=== PATIENT | female | born 1955 | race Two or more races ===

== ENCOUNTER 2022-06-23 11:26 | Inpatient (IN) | payer OTHER ==
[~2022-06-23] VITALS: Ht 162.6 cm; Wt 59.4 kg
--- NOTE | 2022-06-23 11:30 | NUR ---
RECEIVED PT 66 YRS MALE [facility] HIGH BP SBP OVER 200MMHG PT SENT FROM MD OFFICE
--- NOTE | 2022-06-23 12:05 | NUR ---
SEEN BY DR. KUMAR
--- NOTE | 2022-06-23 13:00 | NUR ---
SUBMITTED MOVE SHEET
[2022-06-23 13:28] LABS: BASOPHILS # (AUTO) 0.2 K/uL (0.0-0.2); BASOPHILS % (AUTO) 4.2 % (0.0-2.0); EOSINOPHILS % (AUTO) 5.1 % (0.0-6.0); HEMATOCRIT 45 % (33-45); HEMOGLOBIN 14.3 g/dL (11.5-14.8); LYMPHOCYTES # (AUTO) 0.4 K/uL (0.8-4.8); LYMPHOCYTES % (AUTO) 10.5 % (20.0-44.0); MEAN CORPUSCULAR HGB CONC 32 g/dl (31.0-36.0); MEAN CORPUSCULAR VOLUME 89 fL (82-100); MONOCYTES # (AUTO) 0.2 K/uL (0.1-1.30); MONOCYTES % (AUTO) 5.8 % (2.0-12.0); NEUTROPHILS # (AUTO) 3.1 K/uL (1.8-8.9); NEUTROPHILS % (AUTO) 74.4 % (43.0-81.0); PLATELET COUNT (AUTO) 146 K/uL (150-450); RED BLOOD CELL COUNT(AUTO) 4.99 MIL/uL (4.0-5.2); WHITE BLOOD COUNT (AUTO) 4.2 K/uL (4.3-11.0)
[2022-06-23] MEDS ORDERED: THYR30TA2 PO (14:00)
[2022-06-23] MEDS ORDERED: ASPIRIN 325 MG TABLET PO ONE (14:00)
[2022-06-23] MEDS ORDERED: MULT-1200 PO (14:00)
[2022-06-23] MEDS ORDERED: ALBU18HF2 IH (14:00)
[2022-06-23] MEDS ORDERED: LABETALOL HCL IV 100MG VIAL IV ONE (14:00)
[2022-06-23] MEDS ORDERED: ASPIRIN 325 MG TABLET ONE (14:07)
[2022-06-23] MEDS ORDERED: LABETALOL HCL IV 100MG VIAL ONE (14:07)
[2022-06-23 14:10] LABS: CARBON DIOXIDE 27 mmol/L (21-32); CHLORIDE 106 mmol/L (98-107); CREATININE 0.6 mg/dL (0.6-1.3); GLUCOSE 94 mg/dL (74-106); POTASSIUM 3.8 mmol/L (3.5-5.1); SODIUM SERUM 142 mmol/L (136-145); UREA NITROGEN, BLOOD 10 mg/dL (7-18)
--- NOTE | 2022-06-23 14:20 | NUR ---
UA SENT TO LAB
--- NOTE | 2022-06-23 14:30 | NUR ---
KERRI BAZAN SENT TO LAB
--- NOTE | 2022-06-23 14:46 | NUR ---
PAGED EPIC MATERIAL CHECKER
[2022-06-23] MEDS ORDERED: ACETAMINOPHEN ES 500 MG TABLET PO ONE (15:30)
[2022-06-23] MEDS ORDERED: ENOXAPARIN SODIUM 40 MG/0.4 ML DISP.SYRIN SQ SCH (16:00)
[2022-06-23] MEDS ORDERED: hydrALAZINE HCL IV 20 MG VIAL IV PRN (16:00)
[2022-06-23] MEDS ORDERED: ACETAMINOPHEN ES 500 MG TABLET ONE (16:00)
[2022-06-23] MEDS ORDERED: ACETAMINOPHEN 325 MG TABLET PO PRN (16:00)
--- NOTE | 2022-06-23 16:20 | NUR ---
room assigned. 120.2 admitting aware.
[2022-06-23] MEDS ORDERED: HYDROCODONE/APAP 5/325MG TABLET PO PRN (16:30)
[2022-06-23] MEDS ORDERED: LORAZEPAM 1 MG TABLET PO PRN (16:30)
[2022-06-23] MEDS ORDERED: AMLODIPINE BESYLATE 5 MG TABLET PO SCH (16:30)
--- NOTE | 2022-06-23 16:40 | NUR ---
RN NOTES LEAH SPEARS RN RECEIVED REPORT FROM Dottie MOE RN FROM EMERGENCY ROOM. PATIENT WILL BE BROUGHT TO ROOM 120. PATIENT IS MAORI SPEAKING, DOLORES ARELLANO BROUGHT VOYCE TO TRANSLATE FOR ASSESSMENT. PER PHARMACY, DAUGHTER NEEDS TO BRING HOME MEDICATION BOTTLES OF AMOUR THYROID PO 75MG. PATIENT WILL BE ADMITTED TO TELE.
--- NOTE | 2022-06-23 16:46 | NUR ---
HAND OFF SOLO RN TO ROOM 120 VIA SUSANA GARZA
--- NOTE | 2022-06-23 16:50 | NUR ---
TO MRI PT ANSWER QUSENER OF MRI
[2022-06-23] MEDS ORDERED: ALBUTEROL FS 2.5 MG/3 ML VIAL.NEB NEB PRN (17:00)
--- NOTE | 2022-06-23 18:11 | NUR ---
RN NOTE PATIENT ARRIVED TO UNIT TELE 120 BED 2 VIA WHEELCHAIR ACCOMPANIED BY Sofía EDOUARD RN AND Dottie MOE RN. VITAL SIGNS TAKEN BP 155/80 HR 55 O2 SAT 98% ON ROOM AIR, ORAL TEMP 97.9. PATIENT ABLE TO SWALLOW, NOTIFIED MD, DAUGHTER AT BEDSIDE. WILL ENDORSE TO IRRIGATOR SPRINKLING SYSTEM.
--- NOTE | 2022-06-23 20:00 | NUR ---
CHIROPRACTIC PRACTICE MANAGER OPENING NOTES Received patient in bed awake and eating salad with family at bedside. A/O x 4. No s/s of pain noted at this time. On room air, breathing even and unlabored, no distress or sob noted at this time. Patient has IV access MAYO #[id number], intact, patent and flushing well. Patient on road service locksmith of SR, no cardiac distress noted. All belongings checked and belonging list signed. Safety measures in place with bed on lowest and locked position. Side rails up x 3. Call light and tray within easy reach. Will continue with the plan of care and will carry out active MD orders.
[2022-06-23] MEDS: HOME MED MISCELLANEOUS PO SCH (21:02)
[2022-06-23] MEDS: SIMVASTATIN 20 MG TABLET PO SCH ×2 (21:15→21:17)
--- NOTE | 2022-06-23 21:17 | NUR ---
RN NOTES- REFUSED SIMVASTATIN PATIENT REFUSED SIMVASTATIN DESPITE EXPLANATION AND DISCUSSED THE RISK AND BENEFITS. VERBALIZED THAT SHE DOESN'T WANT TO TAKE CHOLESTEROL MEDICATIONS. WILL CONTINUE TO MONITOR THE PATIENT.
--- NOTE | 2022-06-23 22:30 | NUR ---
RN NOTES- NIHSS ASSESSMENT DONE PATIENT NIHSS SCORE IS ZERO. PATIENT VERBALIZED THAT IT'S BEEN ALMOST 2 MONTHS THAT SHE'S BEEN FEELING THE TINGLING SENSATION ON BOTH HANDS AND FEET. WILL CONTINUE TO MONITOR THE PATIENT.
--- NOTE | 2022-06-24 07:07 | NUR ---
FORGING PRESS LEVER TENDER CLOSING NOTES Patient in bed sleeping. Easily be awaken by verbal stimuli. A/O x 4. No s/s of pain noted at this time. On room air, breathing even and unlabored, no distress or sob noted at this time. Patient has IV access MAYO #[id number], intact, patent and flushing well. Patient on awake overnight monitor of SR @ 69, no cardiac distress noted. Safety measures maintained with bed on lowest and locked position. Side rails up x 3. Call light and tray within easy reach. Will enodrse to the next shift.
[2022-06-24] MEDS ORDERED: PANTOPRAZOLE 40 MG TABLET.DR PO SCH (07:30)
[2022-06-24 07:57] LABS: BASOPHILS # (AUTO) 0.1 K/uL (0.0-0.2); BASOPHILS % (AUTO) 2.1 % (0.0-2.0); EOSINOPHILS % (AUTO) 7.3 % (0.0-6.0); HEMATOCRIT 41 % (33-45); LYMPHOCYTES # (AUTO) 0.7 K/uL (0.8-4.8); MEAN CORPUSCULAR HGB CONC 33 g/dl (31.0-36.0); MEAN CORPUSCULAR VOLUME 88 fL (82-100); MONOCYTES # (AUTO) 0.3 K/uL (0.1-1.30); NEUTROPHILS # (AUTO) 2.8 K/uL (1.8-8.9)
[2022-06-24 08:27] LABS: CREATININE 0.7 mg/dL (0.6-1.3); POTASSIUM 3.8 mmol/L (3.5-5.1)
[2022-06-24 08:47] LABS: HEMOGLOBIN 13.5 g/dL (11.5-14.8); LYMPHOCYTES % (AUTO) 16.3 % (20.0-44.0); MONOCYTES % (AUTO) 6.9 % (2.0-12.0); NEUTROPHILS % (AUTO) 67.4 % (43.0-81.0); PLATELET COUNT (AUTO) 146 K/uL (150-450); WHITE BLOOD COUNT (AUTO) 4.2 K/uL (4.3-11.0)
[2022-06-24] MEDS ORDERED: DOCUSATE SODIUM 100 MG CAPSULE PO SCH (09:00)
[2022-06-24] MEDS ORDERED: VALSARTAN 80 MG TABLET PO SCH (09:00)
[2022-06-24] MEDS ORDERED: AMLODIPINE BESYLATE 5 MG TABLET PO SCH (09:00)
[2022-06-24] MEDS ORDERED: ASPIRIN 81 MG TAB.CHEW PO SCH (09:00)
[2022-06-24] MEDS ORDERED: MULTIVITAMINS,THERAGRAN 1 UDTAB TABLET PO SCH (09:00)
[2022-06-24] MEDS: HOME MED MISCELLANEOUS PO SCH (09:35)
[2022-06-24 09:37] VITALS: BP 145/64
--- NOTE | 2022-06-24 09:45 | NUR ---
RN NOTE DR.EDMUND DELEON SPOKE TO PATIENT AT BEDSIDE AT THIS TIME, PLANS FOR OUTPATIENT NEUROSURGEON CONSULT AND RECOMMENDED PATIENT TO HAVE HER PCP INCREASE THYROID MEDICATION DUE TO HIGH LEVELS OF TSH. PENDING MD ORDERS AT THIS TIME.
[2022-06-24 09:51] LABS: THYROID STIMULATING HORMONE 18.691 uIU/mL (0.358-3.74)
[2022-06-24] MEDS ORDERED: VALS80TA31 PO (11:19)
[2022-06-24] MEDS ORDERED: AMLO-212 PO (11:19)
[2022-06-24] MEDS ORDERED: THYR60TA2 PO (11:19)
--- NOTE | 2022-06-24 11:54 | NUR ---
RN NOTE PATIENT LEFT ROOM FOR MRI WITH NAOMI BOTANY LABORATORY ASSISTANT AT THIS TIME, VIA WHEELCHAIR.
--- NOTE | 2022-06-24 12:48 | NUR ---
RN NOTE PATIENT RETURNED TO ROOM 120 FROM MRI AT THIS TIME
--- NOTE | 2022-06-24 16:20 | NUR ---
ELECTRICAL LINEWORKER NOTE PATIENT DISCHARGED HOME IN STABLED CONDITION, SKIN INTACT. PATIENT DISCHARGE PACKET SIGNED, INSTRUCTIONS VERBALLY UNDERSTOOD BY PATIENT. PATIENT BELONGINGS SIGNED AND ACCOUNTED FOR. ID BAND, IV ACCESS, TELE BOX REMOVED. PATIENT PICKED UP BY [facility] ACCOMPANIED BY ADAN HAZEL TO THE EXIT OF THE HOSPITAL VIA WHEELCHAIR.
== END 2022-06-24 16:20 | disposition home or self-care (01) | DRG 347 ==
LOC: ER 11:54 → TELE1 16:22
PROVIDERS: ADMIT Nurse Practitioner Acute Care; ATTEND Internal Medicine
DX: M50.122 Cervical disc disorder at C5-C6 level with radiculopathy (principal); M50.021 Cervical disc disorder at C4-C5 level with myelopathy; M50.022 Cervical disc disorder at C5-C6 level with myelopathy; E03.9 Hypothyroidism, unspecified; M50.121 Cervical disc disorder at C4-C5 level with radiculopathy; M50.11 Cervical disc disorder with radiculopathy, high cervical region; I16.0 Hypertensive urgency; M50.10 Cervical disc disorder with radiculopathy, unspecified cervical region; Z85.850 Personal history of malignant neoplasm of thyroid; Z86.73 Personal history of transient ischemic attack (TIA), and cerebral infarction without residual deficits; J45.909 Unspecified asthma, uncomplicated; Z20.822 Contact with and (suspected) exposure to COVID-19
CPT/HCPCS: 36415; 70450-TC; 70544-TC; 70547-TC; 70551-TC; 71045-TC; 72141-TC; 80048-TC; 80061-TC; 84439-TC; 84443-TC; 84484-TC; 85025-TC; 85652-TC; 85730-TC; 92526; 92611-TC; 93307-TC; 97110-TC; 97116-TC; 97530-TC; C9803; G0378; J1650; J3490